=== PATIENT | female | born 1995 | race Caucasian/White ===

== ENCOUNTER 2017-11-25 08:30 | Outpatient (RCR) | payer OTHER, SELFPAY | END 2017-11-25 08:31 | disposition home or self-care (01) | LOC: PT 08:30 | PROVIDERS: Family Provider Family Medicine; PCP Family Medicine; Visit Provider Orthopaedic Surgery | DX: S83.519A Sprain of anterior cruciate ligament of unspecified knee, initial encounter (principal) | CPT/HCPCS: 97010; 97014; 97016; 97110; 97112; 97140; 97163; 97164; G0283 ==

== ENCOUNTER → 2018-02-06 20:16 | Outpatient (CLI) | payer OTHER, SELFPAY | PROVIDERS: Visit Provider Nurse Practitioner Family | DX: J02.9 Acute pharyngitis, unspecified (principal) ==

== ENCOUNTER 2018-09-02 11:43 | Emergency (ER) | payer OTHER, SELFPAY ==
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
[2018-09-02 12:14] VITALS: BP 139/63; PULSE 76; RESP 16; TEMP 36.6; O2SAT 98; BMI 26.6
[2018-09-02 12:43] LABS: Urine Pregnancy, HCG Qual. Negative (Negative)
[2018-09-02 13:46] VITALS: BP 126/74; PULSE 72; RESP 12; O2SAT 99
[2018-09-02 14:28] VITALS: BP 112/62; PULSE 68; RESP 16; TEMP 36.6; O2SAT 98
== END 2018-09-02 14:29 | disposition home or self-care (01) ==
LOC: UTC 11:46 → ER 11:50
PROVIDERS: Emergency Provider Emergency Medicine
DX: S16.1XXA Strain of muscle, fascia and tendon at neck level, initial encounter (principal); S00.93XA Contusion of unspecified part of head, initial encounter; V43.62XA Car passenger injured in collision with other type car in traffic accident, initial encounter; Y92.414 Local residential or business street as the place of occurrence of the external cause
CPT/HCPCS: 70450; 72125; 81025; 99284

== ENCOUNTER → 2019-10-23 11:18 | Outpatient (CLI) | payer BC, SELFPAY | PROVIDERS: PCP Family Medicine; Visit Provider Nurse Practitioner Family | DX: Z03.818 Encounter for observation for suspected exposure to other biological agents ruled out (principal) | CPT/HCPCS: U0003 ==

== ENCOUNTER → 2020-01-28 11:27 | Outpatient (CLI) | payer BC, SELFPAY | PROVIDERS: PCP Family Medicine; Visit Provider Family Medicine | DX: Z03.818 Encounter for observation for suspected exposure to other biological agents ruled out (principal) | CPT/HCPCS: U0003 ==

== ENCOUNTER → 2021-01-18 12:21 | Outpatient (CLI) | payer BC, SELFPAY | PROVIDERS: PCP Family Medicine; Visit Provider Nurse Practitioner Family | DX: Z20.822 Contact with and (suspected) exposure to COVID-19 (principal); U07.1 COVID-19 | CPT/HCPCS: C9803; U0003; U0005 ==

== ENCOUNTER 2021-03-05 09:14 | Emergency (ER) | payer BC, SELFPAY ==
[2021-03-05 09:40] VITALS: BP 129/69; PULSE 78; RESP 14; TEMP 36.5; O2SAT 99; BMI 26.6
[2021-03-05 09:49] LABS: UTC Strep Screen (Rapid) Negative (Negative)
--- NOTE | 2021-03-05 10:39 | HMH.EDUTC ---
[facility] [place] Clinical Impression: Bronchitis Sinusitis Qualifiers: Sinusitis location: unspecified location Chronicity: acute Recurrence: non-recurrent Qualified Code(s): J01.90 - Acute sinusitis, unspecified Disposition: Home, Self-Care Condition on Discharge: Good Instructions: Sinusitis, DI for Sinusitis Additional Instructions: Drink plenty of fluids. Take tylenol or ibuprofen for pain or fever. Take the medications as directed. Follow up with your regular doctor. GO TO THE ER FOR ANY WORSENING SYMPTOMS Quarantine until you know the results of your covid-19 test. If it is positive, the health department should call you and give you further instructions about your length of Quarantine and other things. Notify your school or workplace of your results and follow their instructions regarding return to work/school. Prescriptions: Brompheniramine/Pseudoephed/Dm [Bromfed Dm Cough Syrup] 5 ml PO Q6HP PRN #240 ml PRN Reason: Cough Transmission Status: Received by [id number] methylPREDNISolone [Medrol] 4 mg PO DIRECTED 6 Days #21 packet Transmission Status: Received by [facility] guaiFENesin [Mucinex 600mg tablet] 1 - 2 tab PO BIDP PRN #30 tab PRN Reason: Congestion Transmission Status: Received by [facility] Azithromycin [Z-Gordy 250mg Tab*] 250 mg PO UD DOSE PK #6 tab [id number] Referrals: Kurt Perez MD [Primary Care Provider] - Time of Disposition: 10:56 Medical Decision Making - Medical Records Medical records reviewed: No: I reviewed the patient's medical records. - Timothy Inquiry Pt receiving controlled substance: No Vital Signs: 03/05/21 09:40 03/05/21 11:05 Temperature 97.7 F 97.7 F Temperature Source Oral Pulse Rate 78 Pulse Rate [Left] 78 Respiratory Rate 14 14 Blood Pressure 129/69 Blood Pressure [Right Arm] 129/69 Blood Pressure Mean [Right Arm] 89 02 Sat by Pulse Oximetry 99 - Lab Data Lab results reviewed: Yes: I reviewed the patient's lab results. Lab Results 03/05/21 09:38: Strep Scn Rapid [facility] Negative 03/05/21 11:05: Chlamy pneumoniae PCR Not detected, Adenovirus (PCR) Not detected, B. pertussis DNA (PCR) Not detected, Coronavirus OC43 (PCR) Not detected, Coronavirus HKU1 (PCR) Not detected, Coronavirus 229E (PCR) Not detected, SARS-CoV-2 (PCR) Not detected, Coronavirus NL63 (PCR) Not detected, Human Metapneumovir PCR Not detected, Influenza A (H1) PCR Not detected, Influ A (H1N1/09) PCR Not detected, Influenza A (H3) PCR Not detected, Influenza Type A (PCR) Not detected, Influenza Type B (PCR) Not detected, M. pneumoniae (PCR) Not detected, Parainfluenza 1 (PCR) Not detected, Parainfluenza 2 (PCR) Not detected, Parainfluenza 3 (PCR) Not detected, Parainfluenza 4 (PCR) Not detected, RSV (PCR) Not detected, Entero/Rhino (PCR) Detected A Orders (Tests/Meds): ORDERS Category Date Time Status Strep Screen Confirmation Routine Micro 03/05/21 09:38 Received [facility] [place]PI - General Stated complaint: sore throat, congestion Time Seen by Provider: 03/05/21 10:40 Mode of Arrival: Ambulatory Source of Information: Patient Limitations: No Limitations Description of Symptoms (Recalled from Triage Doc. by RN): pt c/o a sore throat and congestion since yesterday. pt was covid positive two mo. ago. HEENT Symptoms (Recalled from RN notes): Yes (sore throat and congestion) Resp Symptoms (Recalled from RN notes): No Skin Symptoms (Recalled from RN notes): No MS Symptoms (Recalled from RN notes): No Functional Status (Recalled from RN notes): wnl - History of Present Illness Provider Complaint: She c/o sore throat, sinus congestion and a productive cough with yellowish sputum for the past 3 days. She has had covid-19 last year. She states that she does not feel like she has covid-19 but she would like to be checked because it is lewis and she will be around many family memb
[2021-03-05 11:05] VITALS: BP 129/69; PULSE 78; RESP 14; TEMP 36.5
[2021-03-05 11:26] LABS: Adenovirus,PCR Not Detected (NotDetected); Bordetella Pertussis Not Detected (NotDetected); Chlamydophila Pneumoniae, PCR Not Detected (NotDetected); Coronavirus 19, PCR Not Detected (NotDetected); Coronavirus 229E Not Detected (NotDetected); Coronavirus NL63 Not Detected (NotDetected); Coronavirus OC43 Not Detected (NotDetected); Coronovirus HKU1,PCR Not Detected (NotDetected); Human Metapneumovirus Not Detected (NotDetected); Influenza A, PCR Not Detected (NotDetected); Influenza AH1, 2009 Not Detected (NotDetected); Influenza AH1, PCR Not Detected (NotDetected); Influenza AH3,PCR Not Detected (NotDetected); Influenza B, PCR Not Detected (NotDetected); Mycoplasma Pneumoniae, PCR Not Detected (NotDetected); Parainfluenza 1, PCR Not Detected (NotDetected); Parainfluenza 2, PCR Not Detected (NotDetected); Parainfluenza 3, PCR Not Detected (NotDetected); Parainfluenza 4, PCR Not Detected (NotDetected); Respiratory Syncytial Virus Not Detected (NotDetected)
[2021-03-05 14:12] LABS: Rhinovirus/Enterovirus Detected (NotDetected)
== END 2021-03-05 11:10 | disposition home or self-care (01) ==
PROVIDERS: Emergency Provider Nurse Practitioner Family; PCP Family Medicine
DX: J20.9 Acute bronchitis, unspecified (principal); J01.90 Acute sinusitis, unspecified
CPT/HCPCS: 87581; 87632; 87798; 87880; 99203; C9803; G0463; U0003; U0005

== ENCOUNTER → 2021-11-20 08:55 | Outpatient (CLI) | payer BC, SELFPAY ==
[2021-11-20 11:00] LABS: HCG,Quantitative 78384 mIU/ml (0-5.42)
== END ==
PROVIDERS: Visit Provider Obstetrics & Gynecology
DX: N92.6 Irregular menstruation, unspecified (principal)
CPT/HCPCS: 36415; 84702

== ENCOUNTER → 2021-11-27 16:30 | Outpatient (CLI) | payer BC, SELFPAY | PROVIDERS: Visit Provider Obstetrics & Gynecology | DX: Z34.90 Encounter for supervision of normal pregnancy, unspecified, unspecified trimester (principal) | CPT/HCPCS: 87086 ==

== ENCOUNTER → 2021-12-04 15:17 | Outpatient (CLI) | payer BC, SELFPAY ==
[2021-12-04 16:02] LABS: Basophils # 0.1 K/mm3 (0-0.2); Basophils % 0.8 % (0.1-2.0); Eosinophils % 0.4 % (0.1-12.0); Hematocrit 38.2 % (37.0-47.0); Hemoglobin 12.9 g/dL (12.2-16.2); Lymphocytes # 2.2 K/mm3 (0.7-4.5); Lymphocytes % 25.7 % (10-50); Mean Corpuscular HGB Conc 33.7 g/dL (31.8-35.4); Mean Corpuscular Hemoglobin 30.6 pg (27.0-31.2); Mean Corpuscular Volume 90.9 fl (81-99); Mean Platelet Volume 8.1 fl (7.4-10.4); Monocytes # 0.4 K/mm3 (0.1-1.0); Monocytes % 4.2 % (1.7-9.3); Neutrophils # 5.8 K/mm3 (1.8-7.8); Neutrophils % 68.9 % (37.0-80.0); Platelet Count 310 K/mm3 (142-424); Red Blood Count 4.21 M/mm3 (4.20-5.40); Red Cell Distribution Width 13.2 % (11.5-17.5); White Blood Count 8.4 K/mm3 (4.8-10.8)
[2021-12-06 08:11] LABS: Rapid Plasma Reagin Ab Titer Non Reactive (NonRea<1:1); Rubella Antibodies, IgG 1.53 index (Immune >0.99)
[2021-12-06 09:18] LABS: HIV Screen 4th Generation wRfx Non Reactive (Non Reactive); Hepatitis B Surface Antigen Negative (Negative); Hepatitis C Antibody <0.1 s/co ratio (0.0-0.9)
== END ==
PROVIDERS: Visit Provider Obstetrics & Gynecology
DX: Z34.90 Encounter for supervision of normal pregnancy, unspecified, unspecified trimester (principal)
CPT/HCPCS: 36415; 85025; 86592; 86703; 86762; 86850; 87340; 87380; G0432

== ENCOUNTER → 2022-02-24 14:46 | Outpatient (CLI) | payer BC, OTHER, SELFPAY ==
--- NOTE | 2022-02-24 14:46 | US_ITS ---
FINAL REPORT CLINICAL HISTORY: 20 week anatomy scan FINDINGS: There is a single live intrauterine gestation. Presentation is cephalic. The cervix is closed and measures 3.4 cm. Placenta is anterior, grade 1. movement is noted. Heart rate is measured at 155 beats per minute. Three-vessel cord with satisfactory umbilical cord insertion. Four-chamber heart is noted. brain and ventricles are unremarkable. Chest and diaphragm are unremarkable. ABDOMEN: Both kidneys are unremarkable. Stomach is unremarkable. SPINE: No anomalies identified. Both arms and legs noted. AMNIOTIC FLUID: Appropriate amount. MEASUREMENTS: ULTRASOUND AGE: 22 weeks 5 days. GESTATION AGE: 22 weeks 2 days. ESTIMATED WEIGHT: 511 g GROWTH PERCENTILE: 55% LMP percentile BPD: 5.6 cm corresponding with 23 weeks 2 days. OFD: 6.8 cm corresponding with 22 weeks 2 days. HC: 19.6 cm corresponding with 21 weeks 6 days. AC: 17.9 cm corresponding with 22 weeks 6 days. FL: 3.8 cm corresponding with 22 weeks 3 days. CEREBELLUM: 2.2 cm corresponding with 22 weeks 2 days. HUMERUS: 3.7 cm corresponding with 22 weeks 6 days. HC/AC: 1.10 CI: 83% FL/BPD: 68% FL/AC: 21% IMPRESSION: Single living IUP with an ultrasound age of 22 weeks 5 days. No gross anomalies noted. Reviewed, Interpreted and Dictated by Blade Smith III, MD Transcribed by Mirna Griffin Authenticated and [facility]
== END ==
PROVIDERS: PCP Obstetrics & Gynecology; Visit Provider Obstetrics & Gynecology
DX: Z34.90 Encounter for supervision of normal pregnancy, unspecified, unspecified trimester (principal); Z3A.20 20 weeks gestation of pregnancy
CPT/HCPCS: 76811

== ENCOUNTER → 2022-03-27 08:16 | Outpatient (CLI) | payer BC, SELFPAY ==
[2022-03-27 09:18] LABS: Glucose,Fasting 89 mg/dl (74-100)
[2022-03-27 10:51] LABS: Glucose 1 Hour 99 mg/dL (74-100)
== END ==
PROVIDERS: Visit Provider Obstetrics & Gynecology
DX: Z34.90 Encounter for supervision of normal pregnancy, unspecified, unspecified trimester (principal)
CPT/HCPCS: 36415; 82951

== ENCOUNTER 2022-03-30 15:23 | Outpatient (CLI) | payer BC, OTHER, SELFPAY ==
[2022-03-30 15:35] VITALS: BMI 32.3
[2022-03-30 15:45] VITALS: BP 133/67; PULSE 82; RESP 17; TEMP 37; O2SAT 99; BMI 31.3
[2022-03-30 15:51] LABS: Microscopic, Urine URINE MICROSCOPIC (MICROSCOPIC)
[2022-03-30 15:55] LABS: Appearance,Urine CLEAR (Clear); Bilirubin,Urine Negative (Negative); Blood, Urine TRACE-I (Negative); Color,Urine YELLOW (Yellow); Glucose,Urine (UA) Negative (Negative); Ketones,Urine TRACE (Negative); Leukocyte Esterase,Urine 1+ (Negative); Nitrate,Urine Negative (Negative); Protein,Urine Negative (Negative); Urobilinogen,Urine 0.2 EU/dl (0.2)
[2022-03-30 16:07] LABS: Amphetamine/Metha Screen,Urine Negative ng/ml (<1000)
[2022-03-30 16:08] LABS: Barbiturates Screen,Urine Negative ng/ml (<200)
[2022-03-30 16:09] LABS: Benzodiazepines Screen,Urine Negative ng/ml (<200)
[2022-03-30 16:10] LABS: Cannabinoid Screen,Urine Negative ng/ml (<50)
[2022-03-30 16:11] LABS: Cocaine Screen,Urine Negative ng/ml (<300); Methadone Screen,Urine Negative ng/ml (<300)
[2022-03-30 16:12] LABS: Opiate Screen,Urine Negative ng/ml (<300); Phencyclidine Screen,Urine Negative ng/ml (<25)
[2022-03-30 16:17] LABS: Bacteria,Urine Trace /lpf; RBC,Urine Occasional #/hpf (0-3)
== END 2022-03-30 16:55 | disposition home or self-care (01) ==
LOC: OBOUT 15:24 → OB 15:26
PROVIDERS: PCP Nurse Practitioner Family; Visit Provider Obstetrics & Gynecology
DX: O26.892 Other specified pregnancy related conditions, second trimester (principal); Z3A.27 27 weeks gestation of pregnancy; R10.13 Epigastric pain
CPT/HCPCS: 59025; 80305; 81001; 87086; G0463

== ENCOUNTER → 2022-06-04 16:41 | Outpatient (CLI) | payer BC, SELFPAY | PROVIDERS: Visit Provider Obstetrics & Gynecology | DX: Z34.90 Encounter for supervision of normal pregnancy, unspecified, unspecified trimester (principal) | CPT/HCPCS: 86403 ==

== ENCOUNTER 2022-06-13 04:30 | Inpatient (IN) | payer BC, OTHER, SELFPAY ==
[2022-06-13 03:28] VITALS: BP 124/73; PULSE 80; RESP 18; TEMP 37.1; O2SAT 98; BMI 35.4
[2022-06-13 04:07] LABS: Microscopic, Urine URINE MICROSCOPIC (MICROSCOPIC)
[2022-06-13 04:11] LABS: Appearance,Urine CLEAR (Clear); Bilirubin,Urine Negative (Negative); Blood, Urine Negative (Negative); Color,Urine YELLOW (Yellow); Glucose,Urine (UA) Negative (Negative); Ketones,Urine Negative (Negative); Leukocyte Esterase,Urine Negative (Negative); Nitrate,Urine Negative (Negative); Protein,Urine Negative (Negative); Urobilinogen,Urine 0.2 EU/dl (0.2)
[2022-06-13 04:18] LABS: Fetal Membrane Rupture (Rapid) Positive (Negative)
[2022-06-13 04:23] LABS: Benzodiazepines Screen,Urine Negative ng/ml (<200)
[2022-06-13 04:24] LABS: Amphetamine/Metha Screen,Urine Negative ng/ml (<1000); Bacteria,Urine Trace /lpf; Barbiturates Screen,Urine Negative ng/ml (<200); Calcium Oxalate Crystals,Urine Trace /lpf; Squamous Epithelial Cell,Urine Occasional #/hpf (0-5)
[2022-06-13 04:25] LABS: Cannabinoid Screen,Urine Negative ng/ml (<50); Cocaine Screen,Urine Negative ng/ml (<300)
[2022-06-13 04:26] LABS: Methadone Screen,Urine Negative ng/ml (<300)
[2022-06-13 04:27] LABS: Opiate Screen,Urine Negative ng/ml (<300); Phencyclidine Screen,Urine Negative ng/ml (<25)
[2022-06-13 04:30] VITALS: TEMP 37
[2022-06-13 05:28] LABS: Coronavirus 19, PCR Not Detected (NotDetected); Influenza A, PCR Not Detected (NotDetected); Influenza B, PCR Not Detected (NotDetected)
[2022-06-13 05:30] VITALS: TEMP 36.9
[2022-06-13 05:42] LABS: Basophils # 0.1 K/mm3 (0-0.2); Basophils % 0.6 % (0.1-2.0); Eosinophils % 0.4 % (0.1-12.0); Hematocrit 38.7 % (37.0-47.0); Hemoglobin 12.6 g/dL (12.2-16.2); Lymphocytes # 2.5 K/mm3 (0.7-4.5); Lymphocytes % 24.4 % (10-50); Mean Corpuscular HGB Conc 32.5 g/dL (31.8-35.4); Mean Corpuscular Hemoglobin 29.6 pg (27.0-31.2); Mean Corpuscular Volume 91.3 fl (81-99); Monocytes # 0.5 K/mm3 (0.1-1.0); Monocytes % 4.7 % (1.7-9.3); Neutrophils # 7.1 K/mm3 (1.8-7.8); Platelet Count 212 K/mm3 (142-424); Red Blood Count 4.24 M/mm3 (4.20-5.40); Red Cell Distribution Width 13.4 % (11.5-17.5); White Blood Count 10.2 K/mm3 (4.8-10.8)
[2022-06-13 06:20] VITALS: BP 123/78; PULSE 69; RESP 18
[2022-06-13 06:30] VITALS: TEMP 37
--- NOTE | 2022-06-13 09:13 | EXP.LABOR.NO ---
Labor Note Subjective: Date: 06/13/22 Time: 09:13 regular contraction Objective: NST:: Reactive Contractions:: every 2-3 minutes Cervical Dilation:: 6 Effacement:: 100% Station: 0 Membranes: spontaneously ruptured Fetus: Monitoring?: Yes monitoring type:: Internal and External Comment:: I inserted an IUPC Assessment: Labor progressing?: Yes Cephalopelvic disproportion?: No Plan: Anesthesia for epidural?: Yes Continue to labor down?: Yes Plan for ?: No Continue to monitor?: Yes Start pushing?: No
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
--- NOTE | 2022-06-13 12:03 | EXP.LABOR.NO ---
Labor Note Subjective: Date: 06/13/22 Time: 12:03 regular contraction Objective: NST:: Reactive Contractions:: every 2-3 minutes Cervical Dilation:: 9-10 Effacement:: 100% Station: +2 Membranes: spontaneously ruptured Fetus: Monitoring?: Yes monitoring type:: Internal and External Assessment: Labor progressing?: Yes Cephalopelvic disproportion?: No Plan: Anesthesia for epidural?: Yes Continue to labor down?: Yes Plan for ?: No Continue to monitor?: Yes Start pushing?: Yes Continue pushing?: Yes Comment:: She has been pushing and she brings a head down with each contraction. We will expect a vaginal delivery.
--- NOTE | 2022-06-13 13:05 | P.PCN_ITS ---
Delivery Note Delivery Date:: 06/13/22 Delivery Time:: 12:47 Anesthesia Type: Epidural Was labor medically induced?: No Induction method: none Gestational age (weeks): 37 Infant delivered prior to 39 weeks?: Yes Justification for early elective delivery:: Active Labor Gender: Male at 1 minute: 7 at 5 minutes: 9 LAC or MLE?: LAC Delivery Procedure:: She is a 26-year-old 1 para 0 at 37 and 6 weeks gestational age. She ca me in in active labor with ruptured membranes. Her labor was subsequently augmented with oxytocin and under labor epidural she progressed to full dilation. She delivered spontaneously a liveborn male child at 12:47 PM in the afternoon of June 13, 2022. On delivery the head there was no nuchal cord. The anterior shoulder easily delivered followed by the rest the infant's body atraumatically. The baby was vigorous and cried spontaneously. The oropharynx and nasopharynx were bulb suction. We allowed the cord to continue to pulsate for approximately 1 minute. The cord was then doubly clamped and cut and the infant was placed on the mother's abdomen for further care. The nurses assigned Apgars of 7 at 1 minute and 9 at 5 minutes. We then obtained cord blood. She received IV oxytocin using gentle traction on the cord and countertraction on the fundus I was able to easily deliver the placenta intact. Had a normal three-vessel cord. She had a second-degree perineal laceration and the perineum was torn to the anus. The sphincter however was completely intact. The vaginal mucosa was closed using running 3-0 Vicryl Rapide suture in a locked fashion. The deep tissues of the perineum were closed with interrupted 2-0 Vicryl suture. The skin on the perineum was closed with interrupted 2-0 Vicryl suture. The rectal mucosa was intact. She has a positive blood, she is rubella immune and was group B streptococcus negative. She plans to breast-feed. Her estimated blood loss was 350 cc. Laceration:: vaginal Placental Delivery Description: Spontaneous
--- NOTE | 2022-06-14 07:30 | EXP.ACUTE.PN ---
Subjective *Date: 06/14/22 *Time: 07:30 Interval history: PPD # 1 s/p Resting comfortably in bed. Pain controlled. She is breast feeding. Light lochia. Voiding without difficulty and passing flatus. Denies fever/chills, chest pain and shortness of breath. No heaedaches or lightheadedness. Admits to bilateral lower extremity swelling that has improved since delivery. Medical Exam Vital signs and Labs for Last 24 Hours: Laboratory Results - last 24 hr 06/13/22 05:10: Blood Type A Positive, Antibody Screen Negative I & O for Labs for Last 24 Hours: Intake & Output 06/11/22 06/12/22 06/13/22 06/14/22 23:59 23:59 23:59 23:59 Weight 226 lb Head: Present atraumatic and normocephalic ENT: Present normal exam and mucous membranes moist Neck: Present normal inspection and full ROM Respiratory: Present CTA bilaterally and normal respiratory effort Cardiac: Present Reg Rate and Rhythm GI: Present soft and normal bowel sounds; Absent distention or tenderness Rectal (female): Present deferred (female): Present deferred Extremities: Present full ROM and edema (+1 bilateral lower extremity edema); Absent calf tenderness Neuro: Present alert, awake, oriented x 3 and moves all extremities Assessment and Plan *Assessment and plan (1) with 37 weeks completed gestation: Status: Acute Category: Medical Code(s): Z3A.37 - 37 weeks gestation of (2) Status post vaginal delivery: Status: Acute Category: Surgical Plan Continue routine care Encouraged increased ambulation Awaiting AM labs Plan d/c home PPD # 2
[2022-06-14 07:35] LABS: Hematocrit 31.8 % (37.0-47.0); Hemoglobin 10.7 g/dL (12.2-16.2)
[2022-06-14 09:20] VITALS: BP 129/69; PULSE 89; RESP 18; TEMP 36.7; O2SAT 97
[2022-06-14 16:18] VITALS: BP 119/57; PULSE 76; RESP 17; TEMP 36.9; O2SAT 97
--- NOTE | 2022-06-14 19:16 | PC.NURSE ---
All charting and care completed under my direct supervision
[2022-06-14 19:34] VITALS: BP 125/60; PULSE 71; RESP 18; TEMP 37; O2SAT 98
[2022-06-15 04:15] VITALS: BP 121/64; PULSE 69; RESP 18; TEMP 37.1; O2SAT 98
--- NOTE | 2022-06-15 09:06 | EXP.DC.SUM ---
General Admission date:: 06/13/22 Discharge date: 06/15/22 HPI HPI HPI: PPD # 2 s/p Feeling well. Pain is controlled. Light lochia. She is breast feeding. Voiding without difficulty and passing flatus. Tolerating regular diet. Denies fever/chills, chest pain and shortness of breath. No headaches or vision changes. She admits to bilateral lower extremity swelling. No calf pain. Hospital Course Hospital Course Hospital Course: Mrs Beverly García is a 26-year-old 1 para 0 at 37 and 6 weeks gestational age. She had spontaneous rupture of membranes on 06/13/22 at about 0220. She came to the hospital with regular contractions. She has had an otherwise uncomplicated . She had a normal spontaneous vaginal delivery on 06/13/22 at 1247. She delivered a live baby boy (baby's name Gigi) weighing 8 lb 14 oz. AGPARs 7, 9. She is doing well . She is breast feeding. Light lochia. Voiding without difficulty and passing flatus. Vital signs stable, afebrile. Tolerating regular diet. No fever/chills, chest pain or shortness of breath. On exam, heart regular rate and rhythm. Lungs clear to auscultation. Abdomen soft, nontender. She has +2 bilateral lower extremity edema. No calf tenderness to palpation. Normal hospital course. She was discharged home PPD # 2. Exam Data for Last 24 hours Vital signs and Labs for Last 24 Hours: Temp Pulse Resp BP Pulse Ox 98.7 F 69 18 121/64 98 06/15/22 04:15 06/15/22 04:15 06/15/22 04:15 06/15/22 04:15 06/15/22 04:15 I & O for Last 24 hours: Intake & Output 06/12/22 06/13/22 06/14/22 06/15/22 23:59 23:59 23:59 23:59 Weight 226 lb Constitutional Constitutional: no acute distress *Routine HEENT Exam Head: Present normocephalic and atraumatic Eye: Absent conjunctivae pink ENT: Present mucous membranes moist and dentition normal *Routine Neck Exam Neck: Present full ROM *Routine Respiratory Exam Respiratory: Present CTA bilaterally and normal respiratory effort *Routine Cardiovascular Exam Cardiovascular: Present RRR *Routine Abdominal Exam Abdominal: Present soft and normoactive bowel sounds; Absent tenderness Comments: Uterine fundus firm and below umbilicus *Routine Rectal Exam Patient deferred: visual exam *Routine Exam Patient deferred: external exam *Routine Extremities Exam Extremities: Present edema (+2 bilateral lower extremity edema) and full ROM; Absent calf tenderness *Routine Neurological Exam Neurological: Present alert, oriented X3 and moving all extremities Routine Psychiatric Exam Psychiatric: Present normal affect and cooperative DS: Diagnosis Discharge Diagnosis (1) with 37 weeks completed gestation: Status: Acute (2) Status post vaginal delivery: Status: Acute (3) Acute blood loss anemia: Status: Acute Meds Home Medications and Allergies Home Medications Medication Instructions Recorded Confirmed Type prenat.vits,apryl,[id number] 1 tab PO DAILY Supplement 06/13/22 06/13/22 History New Prescriptions to Start Prescriptions: Allergies Allergy/AdvReac Type Severity Reaction Status Date / Time No Known Allergies Allergy Verified 06/11/22 11:17 Discharge Plan Disposition Patient Disposition: Home, Self-Care Condition: Good Discharge Order Discharge Orders: Discharge Order (Routine); Ordered 06/15/22 Ordered By: Ruby Zuleta Follow up Plan Follow up with: Ruby Zuleta DO [Staff Physician] - 2 weeks Prescriptions/Medication Reconciliation: Continued prenat.vits,apryl,[id number] Tablet 1 tab PO DAILY Problem Reconciliation Problems Reviewed?: Yes Patient Discharge Instructions ACTIVITY: Limited activity DIET: regular diet Additional Instructions: Nothing in the vagina for 6 weeks No tub baths until released. No heavy lifting Drink plenty of fluids Patient Instructions: Depression, Hemorrhag
== END 2022-06-15 11:30 | disposition home or self-care (01) | DRG 806 ==
LOC: OBOUT 06:39 → OB 06:39
PROVIDERS: Admitting Provider Nurse Practitioner Obstetrics & Gynecology; PCP Nurse Practitioner Family; Visit Provider Nurse Practitioner Obstetrics & Gynecology
DX: O70.1 Second degree perineal laceration during delivery (principal); D62 Acute posthemorrhagic anemia; Z37.0 Single live birth; Z3A.37 37 weeks gestation of pregnancy
CPT/HCPCS: 59409; 36415; 59025; 80305; 81001; 84112; 85014; 85018; 85025; 86850; 94761; C1758; C9803; G0283; U0003; U0005

== ENCOUNTER → 2022-06-16 13:08 | Outpatient (CLI) | payer BC, SELFPAY | PROVIDERS: PCP Nurse Practitioner Family; Visit Provider Pediatrics | DX: Z39.1 Encounter for care and examination of lactating mother (principal) ==

== ENCOUNTER 2024-11-29 07:48 | Outpatient (CLI) | payer BC, SELFPAY | END 2024-11-29 23:59 | disposition home or self-care (01) | LOC: LAB 07:48 | PROVIDERS: PCP Nurse Practitioner Family; Visit Provider Obstetrics & Gynecology | DX: Z34.90 Encounter for supervision of normal pregnancy, unspecified, unspecified trimester (principal); Z3A.00 Weeks of gestation of pregnancy not specified | CPT/HCPCS: 36415; 84144; 84702 ==

== ENCOUNTER 2024-12-03 10:30 | Outpatient (CLI) | payer BC, SELFPAY | END 2024-12-03 23:59 | disposition home or self-care (01) | LOC: LAB.DROPOF 12-04 14:31 | PROVIDERS: PCP Obstetrics & Gynecology; Visit Provider Obstetrics & Gynecology | DX: Z34.81 Encounter for supervision of other normal pregnancy, first trimester (principal); Z3A.00 Weeks of gestation of pregnancy not specified | CPT/HCPCS: 87086 ==

== ENCOUNTER 2024-12-07 08:08 | Outpatient (CLI) | payer BC, SELFPAY ==
[2024-12-07 08:44] LABS: Hematocrit 36.6 % (37.0-47.0); Hemoglobin 12.5 g/dL (12.2-16.2); Immature Granulocytes % 0.3 %; Mean Corpuscular HGB Conc 34.2 g/dL (31.8-35.4); Mean Corpuscular Hemoglobin 29.8 pg (27.0-31.2); Mean Corpuscular Volume 87.1 fl (81-99); Nucleated Red Blood Cells % 0 %; Platelet Count 238 K/mm3 (142-424); Red Blood Count 4.20 M/mm3 (4.20-5.40); Red Cell Distribution Width-SD 38.2 fL; White Blood Count 6.7 K/mm3 (4.8-10.8)
[2024-12-07 13:57] LABS: Hepatitis C Ab Qual. W/ RFX NEGATIVE (Negative)
[2024-12-08 08:12] LABS: Hepatitis B Surface Antigen Negative (Negative)
[2024-12-08 08:55] LABS: RPR W/RFX Titers Nonreactive (Nonreactive)
[2024-12-08 09:22] LABS: Rubella Antibodies, IgG 1.08 index (Immune >0.99)
== END 2024-12-07 23:59 | disposition home or self-care (01) ==
LOC: LAB 08:10
PROVIDERS: PCP Nurse Practitioner Family; Visit Provider Obstetrics & Gynecology
DX: Z34.81 Encounter for supervision of other normal pregnancy, first trimester (principal); Z3A.00 Weeks of gestation of pregnancy not specified
CPT/HCPCS: 36415; 85025; 86592; 86762; 86803; 86850; 87340; 87389

== ENCOUNTER 2025-01-29 08:46 | Outpatient (CLI) | payer BC, SELFPAY ==
--- NOTE | 2025-01-29 09:00 | US_ITS ---
PROCEDURE: US OB /MATERNAL DETAIL CLINICAL INDICATION: 20 week anatomy COMPARISON: No exams were available for comparison FINDINGS: Transabdominal sonographic images of the pelvis were obtained. From her established due date she is 20 weeks 0 days. Single viable intrauterine gestation. Breech position. Placenta: Posteriorplacenta grade 1. There is an average amount of fluid. The cervix appears satisfactory. Closed and measuring 3.36 cm in length. Complete survey performed and was unremarkable on the submitted images as in PACS. No discrete anomalies identified on survey imaging by technologist. Active fetus. Three-vessel cord with satisfactory umbilical cord insertion. 4- chamber heart noted. Situs, aortic arch, LVOT, RVOT, three-vessel view appear normal. Survey of brain & ventricles Unremarkable. Cerebellum, thalamus, choroid plexus, cisterna magna appear normal. Face and neck survey unremarkable. Profile, nasion, lips and nose appeared normal. Diaphragm and chest views unremarkable. Abdomen: Both kidneys noted and unremarkable. Stomach and bladder noted and satisfactory. Spine: Survey of the spine satisfactory with no anomalies identified nor imaged. Cervical, thoracic, lower spine appear normal. Both arms and legs noted. Amniotic Fluid: Adequate. MVP 3.56 cm Measurements: Average ultrasound age 20weeks 2days. Estimated due date by ultrasound age 0406/16/2025. Estimated weight 350g BPD = 19weeks 6days HC = 20weeks 2days AC = 21weeks 2days FL = 19weeks 4days Growth Percentile= 68 Heart Rate = 143bpm Cerebellum = 19weeks 6days Humerus = 19weeks 6days HC/AC is 1.1 FL/BPD is 0.67 FL/AC is 0.19 IMPRESSION: 1. Viable fetus in the breech presentation with a posterior placenta grade 1. 2. The fluid is within normal limits with an MVP 3.56 cm. 3. Anatomical scan appears normal. 4. biometry is consistent with the dates. Dictated by: Mane Beard MD 01/29/2025 16:40 Mane Beard MD in [place] 01/29/2025 16:40
== END 2025-01-29 23:59 | disposition home or self-care (01) ==
LOC: RAD 08:47
PROVIDERS: PCP Nurse Practitioner Family; Visit Provider Obstetrics & Gynecology
DX: O32.1XX0 Maternal care for breech presentation, not applicable or unspecified (principal); O99.012 Anemia complicating pregnancy, second trimester; D62 Acute posthemorrhagic anemia; Z3A.20 20 weeks gestation of pregnancy
CPT/HCPCS: 76811